=== PATIENT | female | born 1970 | race Caucasian/White ===

== ENCOUNTER 2023-10-15 05:11 | Emergency (ER) | payer MEDICAID ==
[~2023-10-15] VITALS: Ht 154.9 cm; Wt 77.1 kg
[2023-10-15 05:30] VITALS: BP 127/78; PULSE 79; RESP 18; TEMP 97.8
[2023-10-15] MEDS ORDERED: IBUP-2213 PO (06:27)
[2023-10-15] MEDS ORDERED: PRED20TA5 PO (06:27)
== END 2023-10-15 06:40 | disposition home or self-care (01) ==
LOC: MED 05:11
DX: R05.9 Cough, unspecified (principal); J02.9 Acute pharyngitis, unspecified; Z79.899 Other long term (current) drug therapy
CPT/HCPCS: 99282